=== PATIENT | female | born 1945 | race Caucasian/White ===

== ENCOUNTER 2018-09-01 10:09 | Outpatient (CLI) | payer MEDICARE, BC ==
--- NOTE | 2018-09-01 16:35 | RAD ---
PA AND LATERAL OF THE CHEST: 09/01/18 INDICATION: Preop. COMPARISON: None. FINDINGS: There is a calcified granuloma within the left lower lobe. Lungs are clear. Surgical clips are seen w ithin the right upper quadrant of the abdomen. There is an ACDF involving the lower cervical spine. There is prominent thoracolumbar scoliosis. There is diffuse osteopenia. IMPRESSION: No acute cardiopulmonary findings. POS: TPC
[2018-09-01 17:33] LABS: Anion Gap 11 mmol/L (10-20); BUN (Urea Nitrogen) 28 mg/dL (9.8-20.1); Calc. Creatinine Clearance 0 mL/min (70-130); Calcium 9.7 mg/dL (7.8-10.44); Carbon Dioxide 31 mmol/L (23-31); Chloride 104 mmol/L (98-107); Estimated GFR-MDRD 83; Glucose 93 mg/dL (80-115); Potassium 4.4 mmol/L (3.5-5.1); Sodium 142 mmol/L (136-145)
[2018-09-01 17:50] LABS: #Eosinphils 0.1 thou/uL (0.0-0.7); #Lymphocytes 1.5 thou/uL (1.20-3.40); #Monocytes 0.4 thou/uL (0.11-0.59); #Neutrophils 1.9 thou/uL (1.40-6.50); %Basophils 0.4 % (0.0-1.0); %Eosinophils 1.4 % (0.0-10.0); %Lymphocytes 39.4 % (21.0-51.0); %Monocytes 10.2 % (0.0-10.0); %Neutrophils 48.6 % (42.0-75.0); Hemoglobin 12.5 g/dL (12.0-16.0); Mean Corpuscular HGB CONC 31.9 g/dL (32.0-36.0); Mean Corpuscular Hemoglobin 31.5 pg (27.0-31.0); Mean Corpuscular Volume 98.7 fL (78.0-98.0); Mean Platelet Volume 9.4 fL (7.4-10.4); Platelet Count 96 thou/uL (130-400); Platelet Morphology Comment Appears Decreased; RBC Distribution Width 11.4 % (11.5-14.5); Red Blood Cell (RBC) Count 3.96 mill/uL (4.20-5.40); White Blood Cell (WBC) Count 3.8 thou/uL (4.8-10.8)
== END 2018-09-01 10:10 | disposition home or self-care (01) ==
LOC: LABBT 10:09
PROVIDERS: ATTEND Specialist
DX: Z01.818 Encounter for other preprocedural examination (principal); K43.9 Ventral hernia without obstruction or gangrene
CPT/HCPCS: 71046; 80048; 85025; 93005; 93010

== ENCOUNTER 2018-09-05 11:41 | Day surgery (SDC) | payer MEDICARE, BC ==
[2018-09-01 15:03] VITALS: BMI 22.4
[2018-09-05] MEDS ORDERED: Ketorolac Tromethamine 30 MG/ML VIAL ONE (13:36)
[2018-09-05] MEDS ORDERED: ceFAZolin Sodium (SDC) 2 GM/100 ML BAG ONE (13:55)
[2018-09-05] MEDS ORDERED: Midazolam HCl 2 mg/2 ml Vial ONE (16:41)
[2018-09-05] MEDS ORDERED: Fentanyl 100 MCG/2 ML VIAL ONE ×2 (16:41→18:32)
[2018-09-05] MEDS ORDERED: Bupivacaine/Epinephrine 0.25% 30 ML VIAL ONE (16:50)
[2018-09-05] MEDS ORDERED: HYDROcodone/Acetaminophen 5/325 mg Tablet ONE (19:10)
--- NOTE | 2018-09-05 21:13 | OP ---
DATE OF PROCEDURE: 09/05/2018 PREOPERATIVE DIAGNOSIS: Ventral incisional hernia. POSTOPERATIVE DIAGNOSIS: Ventral incisional hernia. PROCEDURE PERFORMED: Open repair of ventral incisional hernia with mesh. ANESTHESIA: General with laryngeal mask airway. INDICATIONS: The patient is a 72-year-old white female. She has a history of extensive abdominal surgery for previous breast reconstruction. She subsequently had a laparoscopic cholecystectomy and ended up with an incisional hernia at the port site from her cholecystectomy just above the umbilicus. This has become larger and painful, and she presents this time for hernia repair. DESCRIPTION OF OPERATION: Informed consent was obtained and patient was taken to the operating room, where general anesthesia was obtained with the patient in supine position. Abdomen was prepped with ChloraPrep and draped in sterile fashion. Local anesthetic was infiltrated using 0.25% Marcaine with epinephrine. A periumbilical midline incision was created and dissection was carried through skin and subcutaneous tissue. The hernia was identified superior to the umbilicus. This was primary to the left side of the midline incision. The hernia sac was dissected and excised. Fascial borders were dissected anterior to the fascia. There were no incarcerated contents. I was able to pass my index finger through this. In doing so, I identified a second hernia that appeared a little smaller and it was just inferior to the umbilical stalk and a little bit to the left of the umbilical stalk. There was too large of a fascial bridge to make this into a single incision and since she had a prior abdominoplasty type procedure, I did not want to divide the umbilical stalk if I could help it. I therefore left the umbilical stalk intact. I dissected the second hernia defect inferiorly and closed this with 3 interrupted sutures of 0 Prolene. I then obtained a 6.4 cm Ventralex mesh patch. This was placed in the intraabdominal cavity and pulled snug against the posterior aspect of the abdominal wall. The mesh tails were secured to fascia superiorly and inferiorly using single interrupted sutures of 0 Prolene. The lateral aspects were closed with additional sutures of 0 prolene, obtaining bites of the anterior mesh leaflet of the patch. The wound was then closed in layers with 3-0 Vicryl, attempting to obliterate the space, which was primarily to the left of the midline incision. The skin edges were then approximated with running subcuticular suture of 4-0 Monocryl. Dermabond was placed externally. I then placed a compression dressing using cotton balls and Tegaderm in the typical fashion. There were no complications. Of note, it was ensured that the mesh patch would underlie the second hernia defect that was repaired. The patient was taken to Recovery in stable condition. Job ID: [id number]
== END 2018-09-05 19:55 | disposition home or self-care (01) ==
LOC: SDC 11:41
PROVIDERS: ATTEND Specialist
PROC: 0WUF0JZ Supplement Abdominal Wall with Synthetic Substitute, Open Approach (ICD-10-PCS; principal; 2018-09-05)
DX: K43.2 Incisional hernia without obstruction or gangrene (principal); M06.9 Rheumatoid arthritis, unspecified; Z79.891 Long term (current) use of opiate analgesic; Z88.2 Allergy status to sulfonamides; Z88.8 Allergy status to other drugs, medicaments and biological substances
CPT/HCPCS: J0131; J0690; J1885; J2250; J3010

== ENCOUNTER 2020-07-01 19:25 | Outpatient (CLI) | payer MEDICARE, BC | END 2020-07-01 19:26 | disposition home or self-care (01) | LOC: SCSRAD 19:25 | PROVIDERS: ATTEND Family Medicine | DX: R07.81 Pleurodynia (principal); W19.XXXA Unspecified fall, initial encounter | CPT/HCPCS: 72072 ==

== ENCOUNTER 2020-07-29 15:45 | Outpatient (CLI) | payer MEDICARE, BC | END 2020-07-29 15:46 | disposition home or self-care (01) | LOC: BICULT 15:45 | PROVIDERS: ATTEND Nurse Practitioner Acute Care | DX: R60.0 Localized edema (principal) | CPT/HCPCS: 93970 ==